=== PATIENT | male | born 1995 | race Caucasian/White ===

== ENCOUNTER 2016-10-29 01:57 | Emergency (ER) | payer MEDICAID ==
[2016-10-29 02:40] LABS: CALCIUM 9.6 mg/dL (8.5-10.1); CHLORIDE SERUM 106 mmol/L (98-107); CREATININE SERUM 1.2 mg/dL (0.7-1.3); GFR1 > 60 mL/min; GLUCOSE SERUM 126 mg/dL (74-106); POTASSIUM SERUM 4.6 mmol/L (3.5-5.1); SODIUM SERUM 143 mmol/L (136-145)
[2016-10-29 02:46] LABS: ALBUMIN 4.5 g/dL (3.4-5.0); ALKALINE PHOSPHATASE 104 U/L (46-116); ALT/SGPT 33 U/L (16-63); AST/SGOT 22 U/L (15-37); TOTAL PROTEIN, SERUM 8.4 g/dL (6.4-8.2)
[2016-10-29 03:03] LABS: BASOPHIL % 0.3 % (0-2); PLATELET COUNT 242 x10^3mcL (130-400)
[2016-10-29 03:12] VITALS: BP 135/88
== END 2016-10-29 03:12 | disposition home or self-care (01) ==
LOC: ED 01:57
PROVIDERS: Emergency Medicine
DX: R13.10 Dysphagia, unspecified (principal); Z88.0 Allergy status to penicillin; Z88.1 Allergy status to other antibiotic agents
CPT/HCPCS: 36415